=== PATIENT | female | born 1950 | race Caucasian/White ===

== ENCOUNTER 2017-01-05 08:27 | Emergency (ER) | payer OTHER ==
[~2017-01-05] VITALS: Ht 157.5 cm; Wt 65.8 kg
[~2017-01-05 08:27] MED LIST: ADAL40PE2 SQ; ALEN70TA30 PO; AMLO-147 PO; ASPI-676 PO; DOCU100C26 PO; FOLI-49 PO; HYDR-3498 PO; HYDR25TA6 PO; LISI-313 PO; METH2.5T33 PO; NAPR-688 PO; OMEP20CA16 PO; PENI500T PO; RANI150T9 PO; SULF500T48 PO
[2017-01-05 08:30] VITALS: Ht 157.5 cm; Wt 65.8 kg
[2017-01-05] MEDS ORDERED: ONDANSETRON 4 MG INJ IV STA (09:00)
[2017-01-05] MEDS ORDERED: morphine 4 MG/ML VIAL IV STA (09:00)
[2017-01-05] MEDS ORDERED: SOD CHLORIDE 0.9% 1,000 ML IV STA ×2 (09:00→10:29)
[2017-01-05] MEDS ORDERED: FAMOTIDINE 20 MG INJ IV STA (09:00)
--- NOTE | 2017-01-05 09:43 | RADRPT ---
PROCEDURE: XR Chest. CLINICAL INDICATION: Chest pain. TECHNIQUE: Single frontal view. COMPARISON: 01/28/2012. FINDINGS: The lungs are clear. The heart size is normal. There is calcification in the aorta consistent with atherosclerosis. There is no pleural effusion. There is no pneumothorax. IMPRESSION: 1. Atherosclerosis. 2. Otherwise normal chest x-ray. 3. No change from 01/28/2012. RPTAT: QQ .Xiang Holliday MD, MD Date Time Electronically viewed and signed by .Xiang Holliday MD, MD on 01/05/2017 09:43 .R/
--- NOTE | 2017-01-05 09:51 | ERD ---
ER Documentation Chief Complaint Chief Complaint abd pain with N/V x 1 day HPI 66-year-old female presenting with complaints of epigastric abdominal pain that started this morning. She describes the pain as dull, constant, nonradiating, 7 out of 10. She has had associated nausea and multiple episodes of vomiting that is nonbloody and nonbilious. No associated constipation or diarrhea. She denies any associated fevers or chills. No dysuria. ROS All systems reviewed and are negative except as per history of present illness. Medications Home Meds Active Scripts Ondansetron (Ondansetron Odt) 4 Mg Tab.rapdis, 4 MG PO Q6H Y for NAUSEA AND/OR VOMITING, #10 TAB Prov:ALEX BOWIE MD 01/05/17 Hydrocodone Bit-Acetaminophen* ([place]*) 5-325 Mg Tab, 1 TAB PO Q6 Y for PAIN, # 7 TAB Prov:SHANAE RICO MD 09/06/15 Penicillin V Potassium* (Penicillin V K*) 500 Mg Tab, 500 MG PO QID for 10 Days , TAB Prov:SHANAE RICO MD 09/06/15 Ranitidine Hcl* (Zantac*) 150 Mg Tablet, 150 MG PO BID Y for DISTENSION/GAS/ BLOATING, #30 TAB Prov:KRYSTINA MILLER DO 11/28/14 Reported Medications Naproxen* (Naproxen*) 500 Mg Tablet, 500 MG PO BID Y for PAIN, TAB 11/28/14 Hydrochlorothiazide* (Hydrochlorothiazide*) 25 Mg Tab, 25 MG PO DAILY, TAB 11/28/14 Docusate Sodium* (Doc-Q-Lace*) 100 Mg Capsule, 100 MG PO BID Y for CONSTIPATION , CAP 11/28/14 Alendronate Sodium* (Fosamax*) 70 Mg Tablet, 70 MG PO ONCE A WEEK ON Wednesday01/28/12 Adalimumab (Humira) 40 Mg/0.8 Ml/Kit Pen.ij.kit, 40 MG SQ 2 WEEKS 01/28/12 Lisinopril* (Lisinopril*) 5 Mg Tablet, 5 MG PO DAILY 01/28/12 Aspirin (Yudy Child) 81 Mg Chew, 81 MG PO DAILY 01/28/12 Amlodipine Besylate* (Amlodipine Besylate*) 10 Mg Tablet, 10 MG PO DAILY 01/28/12 Sulfasalazine (Sulfasalazine) 500 Mg Tablet, 500 MG PO BID 01/28/12 Omeprazole* (Omeprazole*) 20 Mg Capsule.dr, 20 MG PO DAILY 01/28/12 Folic Acid* (Folic Acid*) 1 Mg Tablet, 1 MG PO DAILY 01/28/12 Methotrexate Sodium (Methotrexate) 2.5 Mg Tablet, 22.5 MG PO ONCE A WEEK 01/28/12 Allergies Allergies: Coded Allergies: No Known Allergy (Unverified , 11/28/14) PMhx/Soc History of Surgery: Yes (HERNIA X4, X2, GAL BLADDER) Anesthesia Reaction: No Hx Neurological Disorder: No Hx Respiratory Disorders: No Hx Cardiac Disorders: Yes (HTN) Hx Psychiatric Problems: No Hx Miscellaneous Medical Probl: Yes (ARTHRITIS, GERD, OSTEOPEROSIS) Hx Alcohol Use: No Hx Substance Use: No Hx Tobacco Use: No Smoking Status: Never smoker FmHx Family History: No diabetes Physical Exam Vitals Vital Signs Date Time Temp Pulse Resp B/P Pulse Ox O2 Delivery O2 Flow Rate FiO2 01/05/17 08:30 99.3 114 18 129/56 98 Physical Exam Const: No apparent distress, nontoxic Head: Atraumatic Eyes: Normal Conjunctiva ENT: Normal External Ears, Nose and Mouth. Neck: Full range of motion..~ No meningismus. Resp: Clear to auscultation bilaterally Cardio: Regular rate and rhythm, no murmurs Abd: Soft, minimal epigastric tenderness to deep palpation, non distended. No McBurney's point tenderness. No masses palpated. Normal bowel sounds Skin: No petechiae or rashes Back: No midline or flank tenderness Ext: No cyanosis, or edema Neur: Awake and alert, oriented x3, cranial nerves intact, strength and sensations intact in all 4 extremities Psych: Normal Mood and Affect Result Diagram: 01/05/1747 01/05/1747 Results 24 hrs Laboratory Tests Test 01/05/17 09:47 01/05/17 10:55 White Blood Count 15.210^3/ul Red Blood Count 5.2110^6/ul Hemoglobin 12.9g/dl Hematocrit 40.5% Mean Corpuscular Volume 77.7fl Mean Corpuscular Hemoglobin 24.8pg Mean Corpuscular Hemoglobin Concent 31.9g/dl Red Cell Distribution Width 22.6% Platelet Count 19239^3/UL Mean Platelet Volume 9.6fl Neutrophils % 84.4% Lymphocytes % 10.6% Monocytes % 3.7% Eosinophils % 0.5% Basophils % 0.5% Nucleated Red Blood Cells % 0.0/100WBC Neutrophils # 12.910^3/ul Lymphocytes # 1.610^3/ul Monocytes # 0.610^3/ul Eosinophils # 0.110^3/ul Basophils # 0.110^3/ul Nucleated Red Blood Cells # 0.010^3/ul Sodium Level 148mmol/L Potassium Level 4.3mmol/L Chloride Level 99mmol/L Carbon Dioxide Level 36mmol/L Anion Gap 17 Blood Urea Nitrogen 31mg/dl Creatinine 0.92mg/dl Glucose Level 127mg/dl Calcium Level 10.6mg/dl Total Bilirubin 0.8mg/dl Direct Bilirubin 0.00mg/dl Indirect Bilirubin 0.8mg/dl Aspartate Amino Transf (AST/SGOT) 43IU/L Alanine Aminotransferase (ALT/SGPT) 32IU/L Alkaline Phosphatase 116IU/L Troponin I 0.015ng/ml Total Protein 8.8g/dl Albumin 4.3g/dl Globulin 4.50g/dl Albumin/Globulin Ratio 0.95 Lipase 59U/L Bedside Urine pH (LAB) 6.5 Bedside Urine Protein (LAB) 2+ Bedside Urine Glucose (UA) Negative Bedside Urine Ketones (LAB) Trace Bedside Urine Blood Trace-intact Bedside Urine Nitrite (LAB) Negative Bedside Urine Leukocyte Esterase (L 1+ Current Medications Medications (Trade) Dose Ordered Sig/Alex Route PRN Reason Start Time Stop Time Status Last Admin Dose Admin Sodium Chloride (NS) 1,000 ml @ 1,000 mls/hr Q1H STAT IV 01/05/17 09:00 01/05/17 10:00 DC 01/05/17 10:11 Morphine Sulfate (morphine) 4 mg ONCE STAT IV 01/05/17 09:00 01/05/17 09:10 DC 01/05/17 10:10 Ondansetron HCl (Zofran Inj) 4 mg ONCE STAT IV 01/05/17 09:00 01/05/17 09:10 DC 01/05/17 10:11 Famotidine 20 mg 20 mg ONCE STAT IV 01/05/17 09:00 01/05/17 09:10 DC 01/05/17 10:11 Sodium Chloride (NS) 1,000 ml @ 1,000 mls/hr Q1H STAT IV 01/05/17 10:29 01/05/17 11:28 DC 01/05/17 11:10 Procedures/MDM EMERGENT LABS AND DIAGNOSTIC STUDIES: Lab Results above were reviewed and interpreted by me. CBC shows leukocytosis CMP shows elevated BUN and hypernatremia, consistent with dehydration 12-lead EKG was interpreted by Beatrice Bowie MD: Normal Sinus Rhythm Normal axis Normal intervals No acute ST or T wave changes suggestive of acute ischemia or STEMI. Radiology Results as interpreted by Radiology below were reviewed by Ailyn Bowie MD: Chest x-ray shows no acute abnormalities Initial Nursing notes reviewed. Previous Medical Records requested via the Electronic Health Record. EMERGENCY DEPARTMENT COURSE / MEDICAL DECISION MAKING: Patient is presenting with epigastric pain and vomiting. Vitals were notable for mild tachycardia. Differential includes but is not limited to biliary colic , biliary obstruction, acute cholecystitis, pancreatitis, hepatitis, lower lobe pneumonia, gastritis, colitis, cardiac pathology, aortic dissection, ureterolithiasis, pyelonephritis. Labs were ordered to evaluate for above and were notable for leukocytosis and elevated BUN and sodium, consistent with dehydration. The etiology of her leukocytosis is likely secondary to an infectious etiology, however I doubt serious bacterial infection. Chest Xray ordered to evaluate for pneumonia and was read as normal by radiology. 2 L of IV fluids were given. Pain medications and anti-emetics were given with improvement of her symptoms. Upon reevaluation, the patient states she feels much better. She denies any nausea at this time. Upon reevaluation of her abdomen, her abdominal exam was completely normal. I have a low suspicion for appendicitis, perforated viscus, small bowel obstruction, or colitis. I do not suspect cardiac or pulmonary etiology. At this moment the etiology of the abdominal pain is unknown. The patients vitals have been noted and are currently afebrile and hemodynamically stable. The workup, physical exam and observation period do not indicate a serious cause to the pain. The patients symptoms have improved while in the ED and the patient remains hemodynamically stable. Patient was able to tolerate PO. The current assessment has been explained to the patient including the fact that the etiology of the pain cannot be ruled out with certainty. Patient was advised that in the event this is early in the process of a more serious condition they may expect their symptoms to worsen and if so to return to the emergency department immediately. Patient was advised to follow up with primary care physician as soon as possible for re-evaluation within the next 1- 2 days. All of the patients questions were answered. Patient verbalized understanding of plan and agrees. Advised to return to the ER for reevaluation within 12 hours if symptoms worsen. Patient's blood pressure was elevated (>120/80) but appears stable without evidence of hypertensive emergency or urgency. The patient was counseled about the risks of hypertension and urged to pursue outpatient monitoring and therapy within a week with their primary care physician. Departure Diagnosis: Primary Impression: Epigastric pain Additional Impression: Nausea and vomiting Vomiting type: unspecified Vomiting Intractability: unspecified Qualified Code: R11.2 - Nausea and vomiting, intractability of vomiting not specified, unspecified vomiting type Condition: Stable ALEX BOWIE MD Jan 05, 2017 09:51
[2017-01-05] MEDS ORDERED: ONDA4TAB14 PO (13:00)
[2017-01-05 13:46] VITALS: BP 125/53; PULSE 67; RESP 18; TEMP 98.8
== END 2017-01-05 13:46 | disposition home or self-care (01) ==
LOC: E/R 08:27
DX: R10.13 Epigastric pain (principal); R40.2252 Coma scale, best verbal response, oriented, at arrival to emergency department; R11.2 Nausea with vomiting, unspecified; I10 Essential (primary) hypertension; R40.2142 Coma scale, eyes open, spontaneous, at arrival to emergency department; R40.2362 Coma scale, best motor response, obeys commands, at arrival to emergency department; Z79.82 Long term (current) use of aspirin
CPT/HCPCS: 36415; 71010; 80053; 81003; 83690; 84484; 85025; 93005; 96374; 96375; J2270; J2405; J7030; Z7502; Z7610

== ENCOUNTER 2017-02-13 18:01 | Inpatient (IN) | payer MEDICARE, OTHER ==
[~2017-02-13] VITALS: Ht 162.6 cm; Wt 64.5 kg
[~2017-02-13 18:01] MED LIST changes: +ONDA4TAB14 PO
[2017-02-13 18:03] VITALS: Ht 162.6 cm; Wt 64.5 kg
[2017-02-13] MEDS ORDERED: SODIUM CHLORIDE 0.9% 1L BAG IV* STA (23:37)
--- NOTE | 2017-02-14 00:39 | RADRPT ---
PROCEDURE: XR Chest. CLINICAL INDICATION: Sepsis. TECHNIQUE: Single frontal chest x-ray. COMPARISON: 01/05/2017 FINDINGS: The cardiomediastinal silhouette is unremarkable. There is no congestive heart failure.. No focal i nfiltrate is seen. There is no pleural effusion. There is no pneumothorax. The osseous structures are unremarkable. IMPRESSION: 1. No active disease. RPTAT: HMVK .Armand Dunn MD, MD Date Time Electronically viewed and signed by .Armand Dunn MD, on 02/14/2017 00:38 .K/
[2017-02-14 01:06] LABS: BASOPHIL # 0.1 10^3/ul (0.0-0.1); BASOPHILS % 0.7 % (0.0-2.0); HEMATOCRIT 37.3 % (37.0-47.0); HEMOGLOBIN 12.2 g/dl (12.0-16.0); LYMPHOCYTES # 2.3 10^3/ul (0.8-2.9); LYMPHOCYTES % 30.1 % (15.0-51.0); MEAN CORPUSCULAR HEMOGLOBIN 25.6 pg (29.0-33.0); MEAN CORPUSCULAR HGB CONC 32.7 g/dl (32.0-37.0); MEAN CORPUSCULAR VOLUME 78.4 fl (82.0-101.0); MEAN PLATELET VOLUME 10.5 fl (7.4-10.4); MONOCYTE # 0.7 10^3/ul (0.3-0.9); MONOCYTES % 9.3 % (0.0-11.0); NEUTROPHIL # 4.6 10^3/ul (1.6-7.5); NEUTROPHILS % 59.6 % (39.0-77.0); PLATELET COUNT 258 10^3/UL (140-415); RED BLOOD COUNT 4.76 10^6/ul (4.20-5.40); RED CELL DISTRIBUTION WIDTH 20.8 % (11.5-14.5); WHITE BLOOD COUNT 7.7 10^3/ul (4.8-10.8)
[2017-02-14 01:29] LABS: INR 1.03; PROTIME 13.6 Sec (11.9-14.9); PT RATIO 1.1
[2017-02-14 01:34] LABS: ALANINE AMINOTRANSFERASE 29 IU/L (13-69); ALBUMIN/GLOBULIN RATIO 0.93; ALKALINE PHOSPHATASE 100 IU/L (42-121); ANION GAP 18 (8-16); ASPARTATE AMINO TRANSFERASE 36 IU/L (15-46); BILIRUBIN,INDIRECT 0.3 mg/dl (0-1.1); BILIRUBIN,TOTAL 0.3 mg/dl (0.2-1.3); BLOOD UREA NITROGEN 28 mg/dl (7-20); CALCIUM 9.5 mg/dl (8.4-10.2); CARBON DIOXIDE 23 mmol/L (21-31); CHLORIDE 102 mmol/L (97-110); CREATININE 0.97 mg/dl (0.44-1.00); GLUCOSE 116 mg/dl (70-220); POTASSIUM 4.3 mmol/L (3.5-5.1); SODIUM 139 mmol/L (135-144); TOTAL PROTEIN 8.3 g/dl (6.1-8.1)
[2017-02-14 01:45] LABS: TROPONIN-I < 0.012 ng/ml (0.00-0.12)
[2017-02-14 02:03] LABS: ADD UMIC YES; UR ASCORBIC ACID 20 mg/dL (NEGATIVE); UR BACTERIA MODERATE /HPF (NONE SEEN); UR BILIRUBIN (Dip) NEGATIVE (NEGATIVE); UR BLOOD (Dip) NEGATIVE (NEGATIVE); UR CLARITY CLOUDY (CLEAR); UR COLOR AMBER (YELLOW); UR GLUCOSE (Dip) NEGATIVE (NEGATIVE); UR KETONES (Dip) NEGATIVE (NEGATIVE); UR LEUKOCYTE ESTERASE (Dip) 2+ Leu/ul (NEGATIVE); UR MUCUS MANY /HPF (NONE SEEN); UR NITRITE (Dip) NEGATIVE (NEGATIVE); UR RBC 7 /HPF (0-5); UR SPECIFIC GRAVITY (Dip) 1.027 (1.003-1.030); UR SQUAMOUS EPITHELIAL CELL FEW /HPF (FEW); UR TOTAL PROTEIN (Dip) 1+ mg/dl (NEGATIVE); UR UROBILINOGEN (Dip) 1+ mg/dL (NEGATIVE)
[2017-02-14] MEDS ORDERED: CEFEPIME 2GM/50 ML (PMX) 50 ML IVPB ONE (03:00)
[2017-02-14] MEDS ORDERED: ACETAMINOPHEN 325 MG TAB PO PRN ×2 (03:00→05:00)
[2017-02-14] MEDS ORDERED: ONDANSETRON 4 MG INJ IV PRN ×2 (03:00→05:00)
[2017-02-14] MEDS ORDERED: NAPROXEN 500 MG TAB PO PRN (05:00)
[2017-02-14] MEDS ORDERED: BISACODYL (EC) 5 MG TAB PO PRN (05:00)
[2017-02-14] MEDS ORDERED: NACL 0.9% 3 ML SYG IV SCH (05:00)
[2017-02-14] MEDS ORDERED: DOCUSATE SODIUM 100 MG CAP PO PRN (05:00)
[2017-02-14] MEDS ORDERED: HYDROCODONE/APAP (5/325) TAB PO PRN (05:00)
[2017-02-14] MEDS ORDERED: RANITIDINE 150 MG TAB PO PRN (05:00)
[2017-02-14] MEDS ORDERED: morphine 4 MG/ML VIAL IV STA (05:38)
--- NOTE | 2017-02-14 05:43 | ERD ---
ER Documentation Chief Complaint Chief Complaint abd pain , vomiting/diarrhea , dizziness, cough x 2 days HPI This 66-year-old female presents for 2 days of progressive sharp lower abdominal pain, vomiting, diarrhea, generalized weakness and dizziness as well as a mild cough. She been feeling extremely cold and has had fevers and chills. Denies chest pain. ROS All systems reviewed and are negative except as per history of present illness. Medications Home Meds Active Scripts Ondansetron (Ondansetron Odt) 4 Mg Tab.rapdis, 4 MG PO Q6H Y for NAUSEA AND/OR VOMITING, #10 TAB Prov:ALEX JAIN MD 01/05/17 Hydrocodone Bit-Acetaminophen* (Emblem*) 5-325 Mg Tab, 1 TAB PO Q6 Y for PAIN, # 7 TAB Prov:SHANAE RICO MD 09/06/15 Penicillin V Potassium* (Penicillin V K*) 500 Mg Tab, 500 MG PO QID for 10 Days , TAB Prov:SHANAE RICO MD 09/06/15 Ranitidine Hcl* (Zantac*) 150 Mg Tablet, 150 MG PO BID Y for DISTENSION/GAS/ BLOATING, #30 TAB Prov:KRYSTINA MILLER DO 11/28/14 Reported Medications Naproxen* (Naproxen*) 500 Mg Tablet, 500 MG PO BID Y for PAIN, TAB 11/28/14 Hydrochlorothiazide* (Hydrochlorothiazide*) 25 Mg Tab, 25 MG PO DAILY, TAB 11/28/14 Docusate Sodium* (Doc-Q-Lace*) 100 Mg Capsule, 100 MG PO BID Y for CONSTIPATION , CAP 11/28/14 Alendronate Sodium* (Fosamax*) 70 Mg Tablet, 70 MG PO ONCE A WEEK ON Wednesday01/28/12 Adalimumab (Humira) 40 Mg/0.8 Ml/Kit Pen.ij.kit, 40 MG SQ 2 WEEKS 01/28/12 Lisinopril* (Lisinopril*) 5 Mg Tablet, 5 MG PO DAILY 01/28/12 Aspirin (Yudy Child) 81 Mg Chew, 81 MG PO DAILY 01/28/12 Amlodipine Besylate* (Amlodipine Besylate*) 10 Mg Tablet, 10 MG PO DAILY 01/28/12 Sulfasalazine (Sulfasalazine) 500 Mg Tablet, 500 MG PO BID 01/28/12 Omeprazole* (Omeprazole*) 20 Mg Capsule.dr, 20 MG PO DAILY 01/28/12 Folic Acid* (Folic Acid*) 1 Mg Tablet, 1 MG PO DAILY 01/28/12 Methotrexate Sodium (Methotrexate) 2.5 Mg Tablet, 22.5 MG PO ONCE A WEEK 01/28/12 Allergies Allergies: Coded Allergies: No Known Allergy (Unverified , 11/28/14) PMhx/Soc History of Surgery: Yes (HERNIA X4, X2, GAL BLADDER) Anesthesia Reaction: No Hx Neurological Disorder: No Hx Respiratory Disorders: No Hx Cardiac Disorders: Yes (HTN) Hx Psychiatric Problems: No Hx Miscellaneous Medical Probl: Yes (ARTHRITIS, GERD, OSTEOPEROSIS) Hx Alcohol Use: No Hx Substance Use: No Hx Tobacco Use: No Smoking Status: Never smoker Physical Exam Vitals Vital Signs Date Time Temp Pulse Resp B/P Pulse Ox O2 Delivery O2 Flow Rate FiO2 02/14/17 02:46 98.7 85 15 112/53 97 Room Air 02/14/17 01:00 82 15 113/53 99 Room Air 02/13/17 23:30 101.6 89 16 99/51 99 Room Air 02/13/17 22:11 100.0 105 16 119/54 97 Room Air 02/13/17 18:03 100.1 110 18 142/64 98 Physical Exam Const: [] Moderate distress, appears very uncomfortable Head: Atraumatic Eyes: Normal Conjunctiva ENT: Normal External Ears, Nose and Mouth. Neck: Full range of motion..~ No meningismus. Resp: Clear to auscultation bilaterally Cardio: Regular tachycardia, no murmurs Abd: Soft, mild mid abdominal and suprapubic tenderness without guarding or rebound, non distended. Normal bowel sounds Skin: No petechiae or rashes Back: No midline or flank tenderness Ext: No cyanosis, or edema Neur: Awake and alert oriented 3, no focal deficits Psych: Normal Mood and Affect Result Diagram: 02/14/172902/14/1729 Results 24 hrs Laboratory Tests Test 02/14/17 00:30 02/14/17 04:15 White Blood Count 7.710^3/ul Red Blood Count 4.7610^6/ul Hemoglobin 12.2g/dl Hematocrit 37.3% Mean Corpuscular Volume 78.4fl Mean Corpuscular Hemoglobin 25.6pg Mean Corpuscular Hemoglobin Concent 32.7g/dl Red Cell Distribution Width 20.8% Platelet Count 78063^3/UL Mean Platelet Volume 10.5fl Neutrophils % 59.6% Lymphocytes % 30.1% Monocytes % 9.3% Eosinophils % 0.0% Basophils % 0.7% Nucleated Red Blood Cells % 0.0/100WBC Neutrophils # 4.610^3/ul Lymphocytes # 2.310^3/ul Monocytes # 0.710^3/ul Eosinophils # 0.010^3/ul Basophils # 0.110^3/ul Nucleated Red Blood Cells # 0.010^3/ul Prothrombin Time 13.6Sec Prothrombin Time Ratio 1.1 INR International Normalized Ratio 1.03 Activated Partial Thromboplast Time 32.0Sec Urine Color FIONA Urine Clarity CLOUDY Urine pH 5.0 Urine Specific [place] 1.027 Urine Ketones NEGATIVEmg/dL Urine Nitrite NEGATIVEmg/dL Urine Bilirubin NEGATIVEmg/dL Urine Urobilinogen 1+mg/dL Urine Leukocyte Esterase 2+Bon/ul Urine Microscopic RBC 7/HPF Urine Microscopic WBC 33/HPF Urine Squamous Epithelial Cells FEW/HPF Urine Calcium Oxalate Crystals MANY/HPF Urine Bacteria MODERATE/HPF Urine Hyaline Casts FEW/HPF Urine Mucus MANY/HPF Urine Hemoglobin NEGATIVEmg/dL Urine Glucose NEGATIVEmg/dL Urine Total Protein 1+mg/dl Sodium Level 139mmol/L Potassium Level 4.3mmol/L Chloride Level 102mmol/L Carbon Dioxide Level 23mmol/L Anion Gap 18 Blood Urea Nitrogen 28mg/dl Creatinine 0.97mg/dl Glucose Level 116mg/dl Lactic Acid Level 1.2mmol/L < 0.5mmol/L Calcium Level 9.5mg/dl Total Bilirubin 0.3mg/dl Direct Bilirubin 0.00mg/dl Indirect Bilirubin 0.3mg/dl Aspartate Amino Transf (AST/SGOT) 36IU/L Alanine Aminotransferase (ALT/SGPT) 29IU/L Alkaline Phosphatase 100IU/L Troponin I < 0.012ng/ml Total Protein 8.3g/dl Albumin 4.0g/dl Globulin 4.30g/dl Albumin/Globulin Ratio 0.93 Current Medications Medications (Trade) Dose Ordered Sig/Alex Route PRN Reason Start Time Stop Time Status Last Admin Dose Admin Sodium Chloride 2000 ml 2,000 ml BOLUS OVER 2 HOURS STAT IV* 02/13/17 23:37 02/13/17 23:40 DC 02/14/17 00:51 Cefepime HCl (Maxipime 2gm/50 ml (Pmx)) 50 ml @ 100 mls/hr ONCE ONCE IVPB 02/14/17 03:00 02/14/17 03:29 DC 02/14/17 03:00 Ondansetron HCl (Zofran Inj) 4 mg BRIDGE ORDER PRN IV NAUSEA AND/OR VOMITING 02/14/17 03:00 02/15/17 02:59 Acetaminophen (Tylenol Tab) 650 mg ER BRIDGE PRN PO MILD PAIN/FEVER 02/14/17 03:00 02/15/17 02:59 IV Flush (NS 3 ml) 3 ml PER PROTOCOL IV 02/14/17 05:00 Ondansetron HCl (Zofran Inj) 4 mg Q6H PRN IV NAUSEA AND/OR VOMITING 02/14/17 05:00 Acetaminophen (Tylenol Tab) 650 mg Q6H PRN PO PAIN LEVEL 1-3 OR FEVER 02/14/17 05:00 Acetaminophen/ Hydrocodone Bitart (Emblem (5/325)) 1 tab Q6H PRN PO MODERATE PAIN LEVEL 4-6 02/14/17 05:00 Docusate Sodium (Colace) 100 mg Q12H PRN PO CONSTIPATION 02/14/17 05:00 Bisacodyl (Dulcolax) 5 mg DAILY PRN PO CONSTIPATION 02/14/17 05:00 Enoxaparin Sodium (Lovenox) 40 mg DAILY SC 02/14/17 09:00 Aspirin (Aspirin) 81 mg DAILY PO 02/14/17 09:00 Folic Acid (Folic Acid) 1 mg DAILY PO 02/14/17 09:00 Naproxen (Naprosyn) 500 mg BID PRN PO PAIN 02/14/17 05:00 Ranitidine HCl (Zantac) 150 mg BID PRN PO DISTENSION/GAS/BLOATING 02/14/17 05:00 Sulfasalazine (Azulfidine) 500 mg BID PO 02/14/17 09:00 Procedures/MDM Sepsis secondary to combined UTI and influenza. Patient was hydrated 30 cc once per kilogram of normal saline. She was given cefepime for empiric therapy. Diagnosis of sepsis was not made until 00 36 secondary to patient's extended wait in the waiting room because of ER crowding lack of beds in the hospital. She is given Zofran. Also given morphine for pain and to help suppress cough. Heart rate corrected with fluid administration as did fever. Evidence of dehydration on physical exam and with elevated BUN and laboratories. Spoke with Dr. Zavala will be admitting for further treatment and monitoring. EKG interpretation: Sinus rhythm rate of 90, frequent PVCs with a PVC after every second normal B, no ST or T-wave changes concerning for acute ischemia, abnormal EKG animal feeder interpretation: Initial sinus tachycardia with some PVCs followed by sinus rhythm with PVCs. No other arrhythmia Chest x-ray interpretation: I see no acute process. I see no infiltrate, no pulmonary edema, no widened mediastinum, no fractures Total care time greater than 35 minutes: This includes treatment of sepsis and unstable vital signs, careful fluid administration, multiple visits patient's bedside to reassess status, empiric antibiotic therapy, discussion with patient and admitting doctor, review of chart. This does not include billable procedures. Departure Diagnosis: Primary Impression: Sepsis Additional Impressions: Influenza A Complicated UTI (urinary tract infection) Dehydration Condition: Serious JACK LAMBERT DO Feb 14, 2017 05:43
[2017-02-14 07:19] VITALS: PULSE 80; TEMP 98.8
[2017-02-14 08:00] VITALS: BP 128/58; RESP 18
--- NOTE | 2017-02-14 09:18 | HP ---
Date/Time of Note Date/Time of Note DATE: 02/14/17 TIME: 08:56 Assessment/Plan VTE Prophylaxis VTE Prophylaxis Intervention: SCD's Assessment/Plan Chief Complaint/Hosp Course This is a 66-year-old [facility] for: #1 Sepsis: Secondary to underlying UTI. At the current time her lactic acid levels within normal values. Her blood pressures have stabilized. At the current time will provide her IV fluid hydration with NS. Antibiotics have been initiated. Tylenol for fevers. Will check a urine culture and blood culture. #2 abdominal pain: Possibly secondary to underlying UTI however patient did complain of diarrhea and vomiting. Though this could be secondary to UTI or viral illness with her history of rheumatoid arthritis and her being in sepsis I will also order a CT of the abdomen and pelvis. Also order stool for ova and parasites and fecal leukocytes as well. #3 urinary tract infection: She did receive cefepime in the ED. At the current time I will start her on Cipro 400 mg twice daily. Will await urine culture results. #4 rheumatoid arthritis: At the current time I do not feel the patient is in a flare. We will check an ESR level though I am not sure how sensitive this will be secondary to her also having sepsis/UTI. We will continue her home medications. Will need to confirm her methotrexate dosage before starting. She received her Humira injections as an outpatient. We will continue her folic acid. Also takes ranitidine/PPI. Will continue her folic acid. #5 hypertension: We will hold her home medications at this time secondary to # 1. Will initiate the medicines one by one once her blood pressures are consistently stable. #6 osteoporosis: We will hold Fosamax at this time. She takes it once weekly. #7 DVT GI prophylaxis: SCDs, continue home PPI/ranitidine. further treatment strategy will be put as per the clinical course Problems: HPI/ROS Admit Date/Time Admit Date/Time Feb 14, 2017 at 02:41 Hx of Present Illness Chief complaint: Sharp lower abdominal pain vomiting diarrhea 2 days. This 66-year-old female presents for 2 days of progressive sharp lower abdominal pain, vomiting, diarrhea, generalized weakness and dizziness as well as a mild cough. She been feeling extremely cold and has had fevers and chills. Denies chest pain. She denies any problems urinating. She does see education consultant at [facility] on a regular basis and receives monthly injections of Humira. she does report that with the change in the weather she does feel some pain in her joints however she does not think that her symptoms have been in a flare at this time. Allergies: NKDA Medications: See KENIA MAY Const: As per HPI Eyes : No pain discharge or redness or change in visual acuity ENT: No pain, sore throat, congestion, congestion, dysphagia or discharge Respiratory: No shortness of breath, cough, sputum, wheezing, or pleuritic pain Cardiovascular: No chest pain, palpitation, PND, or edema GI : As per HPI Genitourinary: No dysuria, hematuria, flank pain , discharge or CVA tenderness Musculoskeletal: As per HPI Skin: No rash, bruising or hives Neuro: No headache, dizziness, syncope, seizure, focal weakness Endocrine: No polyuria, polydipsia, temperature intolerance Psych: No hallucination, depression, anxiety or suicidal ideation PMH/Family/Social Past Medical History Rheumatoid arthritis, hypertension, osteoporosis Past Surgical History Umbilical hernia repair, cystectomy, 2 Family History Significant Family History: other (Rheumatoid arthritis: Mom) Social History Alcohol Use: none Smoking Status: Never smoker Drug Use: none Exam/Review of Systems Vital Signs Vitals Vital Signs Date Time Temp Pulse Resp B/P Pulse Ox O2 Delivery O2 Flow Rate FiO2 02/14/17 08:00 98.9 63 18 128/58 97 02/14/17 07:19 Room Air Exam Exam General: Patient is a pleasant female lying in bed in no acute distress. HEENT: Atraumatic, normocephalic. The pupils are equal, round and reactive. Extraocular motor are intact Neck: Supple with full range of motion. No rigidity or meningismus Chest: Nontender Lungs: Clear to auscultation bilaterally no crackles rales or wheezing Heart: Normal S1-S2, Regular rhythm and rate. No murmur, S3, or S4 Abdomen:, Tender to palpation of the suprapubic area, normal bowel sounds Extremities: Normal to inspection, no edema no cyanosis Neurologic: Normal mental status, speech normal, cranial nerves II through XII are intact, motor and sensory are intact, did not assess gait secondary to patient stating she was weak, she does use a walker. Additional Comments PROCEDURE: XR Chest. CLINICAL INDICATION: Sepsis. TECHNIQUE: Single frontal chest x-ray. COMPARISON: 01/05/2017 FINDINGS: The cardiomediastinal silhouette is unremarkable. There is no congestive heart failure.. No focal infiltrate is seen. There is no pleural effusion. There is no pneumothorax. The osseous structures are unremarkable. IMPRESSION: 1. No active disease. RPTAT: HMVK .Armand Dunn MD, Date Time Electronically viewed and signed by .Armand Dunn MD, on 02/14/2017 00:38 .K/ CC: JACK LAMBERT DO Labs Result Diagram: 02/14/172902/14/1729 Medications Medications Current Medications Ondansetron HCl (Zofran Inj) 4 mg Q6H PRN IV NAUSEA AND/OR VOMITING; Start at 05:00 Acetaminophen (Tylenol Tab) 650 mg Q6H PRN PO PAIN LEVEL 1-3 OR FEVER; Start 02/14/17 at 05:00 Acetaminophen/ Hydrocodone Bitart ([place] (5/325)) 1 tab Q6H PRN PO MODERATE PAIN LEVEL 4-6; Start 02/14/17 at 05:00 Docusate Sodium (Colace) 100 mg Q12H PRN PO CONSTIPATION; Start 02/14/17 at 05 :00 Bisacodyl (Dulcolax) 5 mg DAILY PRN PO CONSTIPATION; Start 02/14/17 at 05:00 Enoxaparin Sodium (Lovenox) 40 mg DAILY SC ; Start 02/14/17 at 09:00 Aspirin (Aspirin) 81 mg DAILY PO ; Start 02/14/17 at 09:00 Folic Acid (Folic Acid) 1 mg DAILY PO ; Start 02/14/17 at 09:00 Naproxen (Naprosyn) 500 mg BID PRN PO PAIN; Start 02/14/17 at 05:00 Ranitidine HCl (Zantac) 150 mg BID PRN PO DISTENSION/GAS/BLOATING; Start 02/14 at 05:00 Sulfasalazine (Azulfidine) 500 mg BID PO ; Start 02/14/17 at 09:00 LEEROY HERNÁNDEZ Feb 14, 2017 09:06
[2017-02-14] MEDS: ASPIRIN 81 MG TAB PO SCH (09:35)
[2017-02-14] MEDS: FOLIC ACID 1 MG TAB PO SCH (09:35)
[2017-02-14] MEDS: PANTOPRAZOLE (EC) 40 MG TAB PO SCH (09:51)
[2017-02-14] MEDS: CIPROFLOXACIN 400MG/D5W 200 ML IVPB SCH ×2 (09:51→20:22)
[2017-02-14] MEDS: ENOXAPARIN 40 MG/0.4 ML SYG SC SCH (09:51)
[2017-02-14] MEDS: SULFASALAZINE 500 MG TAB PO SCH ×2 (09:53→21:50)
[2017-02-14 15:35] VITALS: BP 126/80; RESP 18
[2017-02-14 19:33] VITALS: BP 117/56; RESP 16
[2017-02-14] MEDS: SOD CHLORIDE 0.9% 1,000 ML IV SCH (20:22)
[2017-02-14 23:00] VITALS: BP 125/78; RESP 18
[2017-02-15 02:00] VITALS: BP 117/56; RESP 18
[2017-02-15 06:08] LABS: BASOPHILS % 0.9 % (0.0-2.0); EOSINOPHILS # 0.2 10^3/ul (0.0-0.5); EOSINOPHILS % 3.6 % (0.0-7.0); HEMATOCRIT 37.3 % (37.0-47.0); HEMOGLOBIN 11.8 g/dl (12.0-16.0); LYMPHOCYTES % 43.6 % (15.0-51.0); MEAN CORPUSCULAR HEMOGLOBIN 25.3 pg (29.0-33.0); MEAN CORPUSCULAR HGB CONC 31.6 g/dl (32.0-37.0); MEAN CORPUSCULAR VOLUME 79.9 fl (82.0-101.0); MEAN PLATELET VOLUME 9.9 fl (7.4-10.4); MONOCYTE # 0.5 10^3/ul (0.3-0.9); MONOCYTES % 10.7 % (0.0-11.0); NEUTROPHIL # 1.9 10^3/ul (1.6-7.5); PLATELET COUNT 187 10^3/UL (140-415); RED BLOOD COUNT 4.67 10^6/ul (4.20-5.40); RED CELL DISTRIBUTION WIDTH 21.1 % (11.5-14.5); WHITE BLOOD COUNT 4.5 10^3/ul (4.8-10.8)
[2017-02-15] MEDS: PANTOPRAZOLE (EC) 40 MG TAB PO SCH (06:42)
[2017-02-15 06:50] LABS: ALANINE AMINOTRANSFERASE 29 IU/L (13-69); ALBUMIN 2.5 g/dl (3.3-4.9); ALBUMIN/GLOBULIN RATIO 0.78; ALKALINE PHOSPHATASE 63 IU/L (42-121); ANION GAP 10 (8-16); ASPARTATE AMINO TRANSFERASE 28 IU/L (15-46); BLOOD UREA NITROGEN 13 mg/dl (7-20); CALCIUM 7.8 mg/dl (8.4-10.2); CARBON DIOXIDE 22 mmol/L (21-31); CHLORIDE 111 mmol/L (97-110); CREATININE 0.53 mg/dl (0.44-1.00); GLUCOSE 84 mg/dl (70-220); HDL CHOLESTEROL 27 mg/dl (35-98); MAGNESIUM 1.6 mg/dl (1.7-2.5); POTASSIUM 3.9 mmol/L (3.5-5.1); SODIUM 139 mmol/L (135-144); TOTAL PROTEIN 5.7 g/dl (6.1-8.1); TRIGLYCERIDES 108 mg/dl (0-149)
[2017-02-15 07:06] LABS: CHOLESTEROL 136 mg/dl (100-200)
--- NOTE | 2017-02-15 07:37 | RADRPT ---
PROCEDURE: CT Abdomen and Pelvis without contrast. CLINICAL INDICATION: Abdominal pain and diarrhea TECHNIQUE: CT scan of the abdomen and pelvis without contrast was performed on a multidetector hig h-resolution CT scanner. The patient was scanned without intravenous contrast. Coronal and sagittal reformatted images were obtained from the axial source images. Images were reviewed on a high-resol [id number] PACS workstation. The total exam CTDI equals 10.52 mGy and the total exam DLP equals 581.58 mG y-cm. DICOM images are available. One or more of the following dose reduction techniques were utilized: 1.) Automated exposure control 2.) Adjustment of the mA +/- kV according to patient's size 3.) Use of iterative reconstruction technique. COMPARISON: CT abdomen pelvis 11/28/2014 and 03/01/2013 FINDINGS: CT abdomen: The lung bases are clear. The heart size is normal, without pericardial thickening or effusion. The liver is normal in size and density without focal mass or intrahepatic biliary dilatation. An i ncompletely evaluated hypodense lesion is noted in the posterior segment of the right lobe of the li barry which measures 2.2 cm AP by 1.8 cm in transverse dimensions. This is most compatible with a cyst although additional imaging of the liver is recommended. The spleen is normal in size and homogeneo us in density. The stomach is incompletely distended with a small hiatal hernia present. The pancre as as visualized is normal. The gallbladder is absent compatible with post cholecystectomy changes. No evidence for intrahepatic or extrahepatic biliary ductal dilatation is noted. The adrenal glands are symmetric and normal. The kidneys are remarkable for nonspecific hypodense sub centimeter lesio n in the left upper pole of the kidney and in the right posterior upper pole. Consider additional im aging with renal ultrasound or contrast CT. No renal calculus or obstructive uropathy or mass lesion is seen. The aorta is of normal caliber without aneurysmal dilatation. Aortic vascular calcifications are pre sent. There is no retroperitoneal lymphadenopathy. The liliya hepatis region is clear. Diffuse colon ic diverticulosis is present. No evidence for acute diverticulitis or appendicitis is noted. The mes entery is normal. CT pelvis: The small bowel loops situated within the pelvis are unremarkable. The pelvic organs are normal. Di stended urinary bladder is noted. The uterus and bilateral adnexa are normal. No evidence for pneumo peritoneum or ascites is present. No evidence for pelvic masses or pathologic lymphadenopathy is pre sent. The pelvic sidewalls and inguinal regions are clear. The sigmoid colon and rectum are remarka ble for sigmoid diverticulosis. The surrounding osseous structures are remarkable for degenerative spondylosis/enthesopathy of the s pine. No osteolytic or osteoblastic lesion is detected. IMPRESSION: 1. No evidence for acute intra-abdominal or pelvic pathology. 2. Incompletely evaluated hypodense lesion in the right lobe of the liver to 0.2 cm AP by 1.8 cm tr ansverse dimensions 3. Status post cholecystectomy changes 4. Moderate diverticulosis without evidence for acute diverticulitis or appendicitis. 5. Mild atherosclerotic vascular disease RPTAT: HDC .Lulu Contreras MD, MD Date Time Electronically viewed and signed by .Lulu Contreras MD, on 02/15/2017 07:37 .C/
[2017-02-15 07:39] VITALS: BP 128/58; RESP 16
[2017-02-15] MEDS: ASPIRIN 81 MG TAB PO SCH (08:50)
[2017-02-15] MEDS: SULFASALAZINE 500 MG TAB PO SCH ×2 (08:50→21:16)
[2017-02-15] MEDS: CIPROFLOXACIN 400MG/D5W 200 ML IVPB SCH ×2 (08:50→21:16)
[2017-02-15] MEDS: FOLIC ACID 1 MG TAB PO SCH (08:50)
[2017-02-15] MEDS: ENOXAPARIN 40 MG/0.4 ML SYG SC SCH (10:01)
[2017-02-15] MEDS: SOD CHLORIDE 0.9% 1,000 ML IV SCH ×2 (10:48→15:01)
[2017-02-15] MEDS ORDERED: MAGNESIUM SULFATE 2 GM/50 ML 50 ML IVPB ONE (13:30)
[2017-02-15 14:54] VITALS: BP 143/65; RESP 18
--- NOTE | 2017-02-15 15:43 | PN ---
Date/Time of Note Date/Time of Note DATE: 02/15/17 TIME: 15:42 Assessment/Plan VTE Prophylaxis VTE Prophylaxis Intervention: SCD's Lines/Catheters IV Catheter Type (from Nrs): Peripheral IV Urinary Cath still in place: No Assessment/Plan Chief Complaint/Hosp Course Subjective Patient's abdominal pain has subsided Objective Physical exam General: Patient is laying in bed and answers questions appropriately Mentation: Patient is alert and oriented 4, Head: Normocephalic atraumatic Eyes: EOMI, pupils reactive to light Neck: Supple, nontender, midline Respiratory: Clear to auscultation bilaterally Cardiovascular: regular rate, no obvious murmurs Gastrointestinal: non-tender to palpation, bowel sounds heard. Neurological: Moves all extremities spontaneously Skin: No new skin lesions Assessment and plan Sepsis, UTI source -Continue antibiotics for now -Follow-up with urine culture and blood cultures Abdominal pain -Questionable secondary to UTI, resolved for now -Possible viral gastroenteritis, however result monitor: Urinary tract infection -Continue antibiotics, await cultures Rheumatoid arthritis, -Patient on Humira injections, hold for now, continue PPI, folic acid Hypertension -Restart blood pressure medications as able Osteoporosis -Hold Fosamax for now Disposition -DC once patient stable and cultures with sensitivities are not. Problems: Exam/Review of Systems Vital Signs Vitals Vital Signs Date Time Temp Pulse Resp B/P Pulse Ox O2 Delivery O2 Flow Rate FiO2 02/15/17 14:54 98.3 85 18 143/65 96 02/14/17 07:19 Room Air Intake and Output 02/14/17 02/14/17 02/15/17 15:00 23:00 07:00 Intake Total 200 ml 800 ml 800 ml Output Total 400 ml Balance 200 ml 400 ml 800 ml Results Result Diagram: 02/15/17 0546 02/15/17 0545 Results 24 hrs Laboratory Tests Test 02/15/17 05:45 02/15/17 05:46 Sodium Level 139 Potassium Level 3.9 Chloride Level 111 H Carbon Dioxide Level 22 Anion Gap 10 # Blood Urea Nitrogen 13 # Creatinine 0.53 Glucose Level 84 Calcium Level 7.8 L Magnesium Level 1.6 L Total Bilirubin Direct Bilirubin Indirect Bilirubin Aspartate Amino Transf (AST/SGOT) 28 Alanine Aminotransferase (ALT/SGPT) 29 Alkaline Phosphatase 63 Total Protein 5.7 #L Albumin 2.5 #L Globulin 3.20 Albumin/Globulin Ratio 0.78 Triglycerides Level 108 Cholesterol Level 136 LDL Cholesterol, Calculated 87 HDL Cholesterol 27 L Cholesterol/HDL Ratio 5.0 Thyroid Stimulating Hormone (TSH) 3.090 White Blood Count 4.5 #L Red Blood Count 4.67 Hemoglobin 11.8 L Hematocrit 37.3 Mean Corpuscular Volume 79.9 L Mean Corpuscular Hemoglobin 25.3 L Mean Corpuscular Hemoglobin Concent 31.6 L Red Cell Distribution Width 21.1 H Platelet Count 187 # Mean Platelet Volume 9.9 Neutrophils % 41.0 Lymphocytes % 43.6 Monocytes % 10.7 Eosinophils % 3.6 Basophils % 0.9 Nucleated Red Blood Cells % 0.0 Neutrophils # 1.9 Lymphocytes # 2.0 Monocytes # 0.5 Eosinophils # 0.2 Basophils # 0.0 Nucleated Red Blood Cells # 0.0 Hemoglobin A1c 5.4 Medications Medications Current Medications Ondansetron HCl (Zofran Inj) 4 mg Q6H PRN IV NAUSEA AND/OR VOMITING; Start at 05:00 Acetaminophen (Tylenol Tab) 650 mg Q6H PRN PO PAIN LEVEL 1-3 OR FEVER; Start 02/14/17 at 05:00 Acetaminophen/ Hydrocodone Bitart ([place] (5/325)) 1 tab Q6H PRN PO MODERATE PAIN LEVEL 4-6 Last administered on 02/15/17 12:05; Admin Dose 1 TAB; Start 02/14/17 at 05:00 Docusate Sodium (Colace) 100 mg Q12H PRN PO CONSTIPATION; Start 02/14/17 at 05 :00 Bisacodyl (Dulcolax) 5 mg DAILY PRN PO CONSTIPATION; Start 02/14/17 at 05:00 Enoxaparin Sodium (Lovenox) 40 mg DAILY SC Last administered on 02/15/17 10: 01; Admin Dose 40 MG; Start 02/14/17 at 09:00 Aspirin (Aspirin) 81 mg DAILY PO Last administered on 02/15/17 08:50; Admin Dose 81 MG; Start 02/14/17 at 09:00 Folic Acid (Folic Acid) 1 mg DAILY PO Last administered on 02/15/17 08:50; Admin Dose 1 MG; Start 02/14/17 at 09:00 Naproxen (Naprosyn) 500 mg BID PRN PO PAIN; Start 02/14/17 at 05:00 Ranitidine HCl (Zantac) 150 mg BID PRN PO DISTENSION/GAS/BLOATING; Start 02/14 at 05:00 Sulfasalazine (Azulfidine) 500 mg BID PO Last administered on 02/15/17 08:50 ; Admin Dose 500 MG; Start 02/14/17 at 09:00 Pantoprazole 40 mg 40 mg DAILY@06 PO Last administered on 02/15/17 06:42; Admin Dose 40 MG; Start 02/14/17 at 09:30 Ciprofloxacin/ Dextrose 200 ml @ 200 mls/hr Q12 IVPB Last administered on 08:50; Admin Dose 200 MLS/HR; Start 02/14/17 at 09:30 Sodium Chloride (NS) 1,000 ml @ 70 mls/hr [id number] IV Last administered on 15:01; Admin Dose 70 MLS/HR; Start 02/14/17 at 20:30 ADENIKE SUÁREZ Feb 15, 2017 15:42
[2017-02-15 20:00] VITALS: BP 148/67; RESP 16
[2017-02-16 02:00] VITALS: BP 118/58; RESP 16
[2017-02-16] MEDS: PANTOPRAZOLE (EC) 40 MG TAB PO SCH (05:30)
[2017-02-16 07:41] VITALS: BP 129/59; RESP 18
[2017-02-16 07:43] LABS: BASOPHIL # 0.1 10^3/ul (0.0-0.1); EOSINOPHILS # 0.2 10^3/ul (0.0-0.5); HEMATOCRIT 35.4 % (37.0-47.0); HEMOGLOBIN 11.3 g/dl (12.0-16.0); LYMPHOCYTES % 42.5 % (15.0-51.0); MEAN CORPUSCULAR HEMOGLOBIN 25.6 pg (29.0-33.0); MEAN CORPUSCULAR HGB CONC 31.9 g/dl (32.0-37.0); MEAN CORPUSCULAR VOLUME 80.1 fl (82.0-101.0); MEAN PLATELET VOLUME 10.9 fl (7.4-10.4); MONOCYTE # 0.4 10^3/ul (0.3-0.9); MONOCYTES % 8.8 % (0.0-11.0); NEUTROPHILS % 42.5 % (39.0-77.0); PLATELET COUNT 193 10^3/UL (140-415); RED BLOOD COUNT 4.42 10^6/ul (4.20-5.40); RED CELL DISTRIBUTION WIDTH 20.7 % (11.5-14.5); WHITE BLOOD COUNT 4.8 10^3/ul (4.8-10.8)
[2017-02-16 08:06] LABS: CALCIUM 7.5 mg/dl (8.4-10.2); CREATININE 0.52 mg/dl (0.44-1.00); MAGNESIUM 1.8 mg/dl (1.7-2.5); PHOSPHORUS 3.1 mg/dl (2.5-4.9); POTASSIUM 4.2 mmol/L (3.5-5.1)
[2017-02-16] MEDS: SOD CHLORIDE 0.9% 1,000 ML IV SCH (08:59)
[2017-02-16] MEDS: SULFASALAZINE 500 MG TAB PO SCH ×2 (09:00→20:29)
[2017-02-16] MEDS: ASPIRIN 81 MG TAB PO SCH (09:00)
[2017-02-16] MEDS: FOLIC ACID 1 MG TAB PO SCH (09:01)
[2017-02-16] MEDS: CIPROFLOXACIN 400MG/D5W 200 ML IVPB SCH ×2 (09:02→20:29)
[2017-02-16] MEDS: ENOXAPARIN 40 MG/0.4 ML SYG SC SCH (09:05)
[2017-02-16] MEDS: OSELTAMIVIR 75 MG CAP PO SCH ×2 (10:00→20:29)
--- NOTE | 2017-02-16 15:18 | PN ---
Date/Time of Note Date/Time of Note DATE: 02/16/17 TIME: 15:15 Assessment/Plan VTE Prophylaxis VTE Prophylaxis Intervention: SCD's Lines/Catheters IV Catheter Type (from Nrs): Peripheral IV Urinary Cath still in place: No Assessment/Plan Chief Complaint/Hosp Course Subjective 02.16 Patient's abdominal pain has subsided, improvement in symptoms Objective Physical exam General: Patient is laying in bed and answers questions appropriately Mentation: Patient is alert and oriented 4, Head: Normocephalic atraumatic Eyes: EOMI, pupils reactive to light Neck: Supple, nontender, midline Respiratory: Clear to auscultation bilaterally Cardiovascular: regular rate, no obvious murmurs Gastrointestinal: non-tender to palpation, bowel sounds heard. Neurological: Moves all extremities spontaneously Skin: No new skin lesions Assessment and plan Sepsis, UTI/viral -Continue antibiotics for now -flu positive, starting tamiflu -mild, resolving Abdominal pain -Questionable secondary to UTI/flu, resolved for now -Possible viral gastrointestinal discomfort, however will monitor Urinary tract infection -Continue antibiotics, await cultures Rheumatoid arthritis, -Patient on Humira injections, hold for now, continue PPI, folic acid Hypertension -Restart blood pressure medications as able Osteoporosis -Hold Fosamax for now Disposition -patient found to be flu positive -start tamiflu, keep cipro -DC tomorrow if stable, monitor overnight due to immunocompromised state given humira injections, may not be able to mount proper SIRS Problems: Exam/Review of Systems Vital Signs Vitals Vital Signs Date Time Temp Pulse Resp B/P Pulse Ox O2 Delivery O2 Flow Rate FiO2 02/16/17 07:41 98.4 79 18 129/59 97 02/14/17 07:19 Room Air Intake and Output 02/15/17 02/15/17 02/16/17 15:00 23:00 07:00 Intake Total 500 ml 1390 ml 1010 ml Balance 500 ml 1390 ml 1010 ml Results Result Diagram: 02/16/17 0613 02/16/17 0613 Results 24 hrs Laboratory Tests Test 02/16/17 06:13 02/16/17 10:27 White Blood Count 4.8 Red Blood Count 4.42 Hemoglobin 11.3 L Hematocrit 35.4 L Mean Corpuscular Volume 80.1 L Mean Corpuscular Hemoglobin 25.6 L Mean Corpuscular Hemoglobin Concent 31.9 L Red Cell Distribution Width 20.7 H Platelet Count 193 Mean Platelet Volume 10.9 H Neutrophils % 42.5 Lymphocytes % 42.5 Monocytes % 8.8 Eosinophils % 5.0 Basophils % 1.0 Nucleated Red Blood Cells % 0.0 Neutrophils # 2.0 Lymphocytes # 2.0 Monocytes # 0.4 Eosinophils # 0.2 Basophils # 0.1 Nucleated Red Blood Cells # 0.0 Sodium Level 137 Potassium Level 4.2 Chloride Level 108 Carbon Dioxide Level 24 Anion Gap 9 Blood Urea Nitrogen 11 Creatinine 0.52 Glucose Level 96 Calcium Level 7.5 L Phosphorus Level 3.1 Magnesium Level 1.8 Lab Scanned Report REFERENCE LAB Medications Medications Current Medications Ondansetron HCl (Zofran Inj) 4 mg Q6H PRN IV NAUSEA AND/OR VOMITING; Start at 05:00 Acetaminophen (Tylenol Tab) 650 mg Q6H PRN PO PAIN LEVEL 1-3 OR FEVER; Start 02/14/17 at 05:00 Acetaminophen/ Hydrocodone Bitart ([place] (5/325)) 1 tab Q6H PRN PO MODERATE PAIN LEVEL 4-6 Last administered on 02/15/17 12:05; Admin Dose 1 TAB; Start 02/14/17 at 05:00 Docusate Sodium (Colace) 100 mg Q12H PRN PO CONSTIPATION; Start 02/14/17 at 05 :00 Bisacodyl (Dulcolax) 5 mg DAILY PRN PO CONSTIPATION; Start 02/14/17 at 05:00 Enoxaparin Sodium (Lovenox) 40 mg DAILY SC Last administered on 02/16/17 09: 05; Admin Dose 40 MG; Start 02/14/17 at 09:00 Aspirin (Aspirin) 81 mg DAILY PO Last administered on 02/16/17 09:00; Admin Dose 81 MG; Start 02/14/17 at 09:00 Folic Acid (Folic Acid) 1 mg DAILY PO Last administered on 02/16/17 09:01; Admin Dose 1 MG; Start 02/14/17 at 09:00 Naproxen (Naprosyn) 500 mg BID PRN PO PAIN; Start 02/14/17 at 05:00 Ranitidine HCl (Zantac) 150 mg BID PRN PO DISTENSION/GAS/BLOATING; Start 02/14 at 05:00 Sulfasalazine (Azulfidine) 500 mg BID PO Last administered on 02/16/17 09:00 ; Admin Dose 500 MG; Start 02/14/17 at 09:00 Pantoprazole 40 mg 40 mg DAILY@06 PO Last administered on 02/16/17 05:30; Admin Dose 40 MG; Start 02/14/17 at 09:30 Ciprofloxacin/ Dextrose 200 ml @ 200 mls/hr Q12 IVPB Last administered on 09:02; Admin Dose 200 MLS/HR; Start 02/14/17 at 09:30; Stop 02/16/17 at 23:45 Sodium Chloride (NS) 1,000 ml @ 70 mls/hr [id number] IV Last administered on 08:59; Admin Dose 70 MLS/HR; Start 02/14/17 at 20:30 Oseltamivir Phosphate (Tamiflu) 75 mg BID PO Last administered on 02/16/17 10 :00; Admin Dose 75 MG; Start 02/16/17 at 09:30 Ciprofloxacin (Cipro) 500 mg BID@,18 PO ; Start 02/17/17 at 06:00 ADENIKE SUÁREZ Feb 16, 2017 15:18
[2017-02-16 20:00] VITALS: BP 144/61; RESP 20
[2017-02-17 02:00] VITALS: BP 110/56; RESP 20
[2017-02-17] MEDS: PANTOPRAZOLE (EC) 40 MG TAB PO SCH (05:33)
[2017-02-17 06:00] LABS: BASOPHILS % 0.8 % (0.0-2.0); EOSINOPHILS # 0.3 10^3/ul (0.0-0.5); EOSINOPHILS % 6.2 % (0.0-7.0); HEMATOCRIT 33.1 % (37.0-47.0); HEMOGLOBIN 10.9 g/dl (12.0-16.0); LYMPHOCYTES # 2.2 10^3/ul (0.8-2.9); LYMPHOCYTES % 41.2 % (15.0-51.0); MEAN CORPUSCULAR HEMOGLOBIN 25.8 pg (29.0-33.0); MEAN CORPUSCULAR HGB CONC 32.9 g/dl (32.0-37.0); MEAN CORPUSCULAR VOLUME 78.4 fl (82.0-101.0); MEAN PLATELET VOLUME 10.2 fl (7.4-10.4); MONOCYTE # 0.4 10^3/ul (0.3-0.9); MONOCYTES % 7.5 % (0.0-11.0); NEUTROPHIL # 2.4 10^3/ul (1.6-7.5); NEUTROPHILS % 44.1 % (39.0-77.0); PLATELET COUNT 174 10^3/UL (140-415); RED BLOOD COUNT 4.22 10^6/ul (4.20-5.40); RED CELL DISTRIBUTION WIDTH 20.8 % (11.5-14.5); WHITE BLOOD COUNT 5.3 10^3/ul (4.8-10.8)
[2017-02-17] MEDS ORDERED: CIPROFLOXACIN 500 MG TAB PO SCH (06:00)
[2017-02-17 06:36] LABS: CALCIUM 7.9 mg/dl (8.4-10.2); CREATININE 0.55 mg/dl (0.44-1.00); MAGNESIUM 1.7 mg/dl (1.7-2.5); PHOSPHORUS 2.9 mg/dl (2.5-4.9); POTASSIUM 3.9 mmol/L (3.5-5.1)
[2017-02-17 08:06] VITALS: BP 118/58; RESP 18
[2017-02-17] MEDS: ASPIRIN 81 MG TAB PO SCH (08:29)
[2017-02-17] MEDS: SULFASALAZINE 500 MG TAB PO SCH (08:29)
[2017-02-17] MEDS: FOLIC ACID 1 MG TAB PO SCH (08:29)
[2017-02-17] MEDS: OSELTAMIVIR 75 MG CAP PO SCH (08:29)
[2017-02-17] MEDS: ENOXAPARIN 40 MG/0.4 ML SYG SC SCH (09:01)
[2017-02-17] MEDS ORDERED: CIPR500T4 PO (09:31)
[2017-02-17] MEDS ORDERED: OSLT75C PO (09:31)
--- NOTE | 2017-02-17 09:33 | PDOCDIS ---
Discharge Instructions CONDITION Patient Condition: Stable FOLLOW UP/APPOINTMENTS Follow-up Plan 1. Finish antibiotics and antivirals as directed, oseltamivir and ciprofloxacin 2. Continue other home medications 3. Follow up with primary care provider regarding need of hypertension medication ADENIKE SUÁREZ Feb 17, 2017 09:33
--- NOTE | 2017-02-17 09:38 | DS ---
Date/Time of Note Date/Time of Note DATE: 02/17/17 TIME: 09:37 Discharge Summary Admission/Discharge Info Admit Date/Time Feb 14, 2017 at 02:41 Discharge Date/Time Hospital Course Patient is a 67-year-old female with past medical history of rheumatoid arthritis on Humira who originally presented with abdominal pain and vague generalized weakness symptoms. Patient was found to have UTI and positive for influenza A. Patient was started on ciprofloxacin and Tamiflu and symptoms resolved quickly. Patient's immune compromise status was taken into account and patient was observed for 48 hours and with no other symptoms and patient feeling back to baseline patient will be discharged with appropriate antibiotics and antivirals and to continue her other home meds. It was expanded the patient that she needs to follow-up regarding the use of her multiple hypertension medications as she may be on too many at this time. Hypertension medication was held during this admission and patient's blood pressure remained relatively stable. 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 Home Meds Active Scripts Oseltamivir Phosphate* (Tamiflu*) 75 Mg Capsule, 75 MG PO BID for 5 Days, #10 CAP Prov:ADENIKE SUÁREZ 02/17/17 Ciprofloxacin Hcl* (Ciprofloxacin Hcl*) 500 Mg Tablet, 500 MG PO BID@06,18 for 5 Days, #10 TAB Prov:ADENIKE SUÁREZ 02/17/17 Reported Medications Naproxen* (Naproxen*) 500 Mg Tablet, 500 MG PO BID Y for PAIN, TAB 11/28/14 Docusate Sodium* (Doc-Q-Lace*) 100 Mg Capsule, 100 MG PO BID Y for CONSTIPATION , CAP 11/28/14 Alendronate Sodium* (Fosamax*) 70 Mg Tablet, 70 MG PO ONCE A WEEK ON Wednesday01/28/12 Adalimumab (Humira) 40 Mg/0.8 Ml/Kit Pen.ij.kit, 40 MG SQ 2 WEEKS 01/28/12 Aspirin (Yudy Child) 81 Mg Chew, 81 MG PO DAILY 01/28/12 Amlodipine Besylate* (Amlodipine Besylate*) 10 Mg Tablet, 10 MG PO DAILY 01/28/12 Sulfasalazine (Sulfasalazine) 500 Mg Tablet, 500 MG PO BID 01/28/12 Omeprazole* (Omeprazole*) 20 Mg Capsule.dr, 20 MG PO DAILY 01/28/12 Folic Acid* (Folic Acid*) 1 Mg Tablet, 1 MG PO DAILY 01/28/12 Methotrexate Sodium (Methotrexate) 2.5 Mg Tablet, 22.5 MG PO ONCE A WEEK 01/28/12 Discontinued Reported Medications Hydrochlorothiazide* (Hydrochlorothiazide*) 25 Mg Tab, 25 MG PO DAILY, TAB 11/28/14 Lisinopril* (Lisinopril*) 5 Mg Tablet, 5 MG PO DAILY 01/28/12 Discontinued Scripts Ondansetron (Ondansetron Odt) 4 Mg Tab.rapdis, 4 MG PO Q6H Y for NAUSEA AND/OR VOMITING, #10 TAB Prov:ALEX JAIN MD 01/05/17 Hydrocodone Bit-Acetaminophen* (Pender*) 5-325 Mg Tab, 1 TAB PO Q6 Y for PAIN, # 7 TAB Prov:SHANAE RICO MD 09/06/15 Penicillin V Potassium* (Penicillin V K*) 500 Mg Tab, 500 MG PO QID for 10 Days , TAB Prov:SHANAE RICO MD 09/06/15 Ranitidine Hcl* (Zantac*) 150 Mg Tablet, 150 MG PO BID Y for DISTENSION/GAS/ BLOATING, #30 TAB Prov:KRYSTINA MILLER DO 11/28/14 Follow-up Plan 1. Finish antibiotics and antivirals as directed, oseltamivir and ciprofloxacin 2. Continue other home medications 3. Follow up with primary care provider regarding need of hypertension medication Primary Care Provider Not On Staff Doctor Pending Labs Laboratory Tests Test 02/16/17 10:27 02/17/17 05:29 02/17/17 05:30 Lab Scanned Report REFERENCE [id number] Sodium Level 138mmol/L (135-144) Potassium Level 3.9mmol/L (3.5-5.1) Chloride Level 108mmol/L (97-110) Carbon Dioxide Level 25mmol/L (21-31) Anion Gap 9 (8-16) Blood Urea Nitrogen 10mg/dl (7-20) Creatinine 0.55mg/dl (0.44-1.00) Glucose Level 92mg/dl (70-220) Calcium Level 7.9mg/dl (8.4-10.2) Phosphorus Level 2.9mg/dl (2.5-4.9) Magnesium Level 1.7mg/dl (1.7-2.5) White Blood Count 5.310^3/ul (4.8-10.8) Red Blood Count 4.2210^6/ul (4.20-5.40) Hemoglobin 10.9g/dl (12.0-16.0) Hematocrit 33.1% (37.0-47.0) Mean Corpuscular Volume 78.4fl (82.0-101.0) Mean Corpuscular Hemoglobin 25.8pg (29.0-33.0) Mean Corpuscular Hemoglobin Concent 32.9g/dl (32.0-37.0) Red Cell Distribution Width 20.8% (11.5-14.5) Platelet Count 78761^3/UL (140-415) Mean Platelet Volume 10.2fl (7.4-10.4) Neutrophils % 44.1% (39.0-77.0) Lymphocytes % 41.2% (15.0-51.0) Monocytes % 7.5% (0.0-11.0) Eosinophils % 6.2% (0.0-7.0) Basophils % 0.8% (0.0-2.0) Nucleated Red Blood Cells % 0.0/100WBC (0.0-0.0) Neutrophils # 2.410^3/ul (1.6-7.5) Lymphocytes # 2.210^3/ul (0.8-2.9) Monocytes # 0.410^3/ul (0.3-0.9) Eosinophils # 0.310^3/ul (0.0-0.5) Basophils # 0.010^3/ul (0.0-0.1) Nucleated Red Blood Cells # 0.010^3/ul (0.0-0.0) ADENIKE SUÁREZ Feb 17, 2017 09:38
== END 2017-02-17 10:37 | disposition home or self-care (01) | DRG 872 ==
LOC: E/R 18:01 → MS1 02-14 02:41 → MS2 02-14 07:43
PROVIDERS: ADMIT Family Medicine; ATTEND Family Medicine
DX: A41.9 Sepsis, unspecified organism (principal); J09.X2 Influenza due to identified novel influenza A virus with other respiratory manifestations; I10 Essential (primary) hypertension; N39.0 Urinary tract infection, site not specified; M06.9 Rheumatoid arthritis, unspecified; M81.0 Age-related osteoporosis without current pathological fracture
CPT/HCPCS: 36415; 71010; 74176; 80048; 80053; 80061; 81001; 83036; 83605; 83735; 84100; 84443; 84484; 85025; 85610; 85651; 85730; 87040; 87045; 87086; 87177; 87205; 87400; 93005; 96374; J0692; J0744; J1650; J2405; J3475; J7030

== ENCOUNTER 2017-03-27 04:20 | Inpatient (IN) | END 2017-04-01 18:10 | disposition home or self-care (01) | DRG 394 ==